=== PATIENT | male | born 2000 | race Caucasian/White ===

== ENCOUNTER 2023-11-18 00:14 | Observation (INO) | payer SELFPAY ==
[2023-11-18 00:32] VITALS: BMI 25.6
[2023-11-18] MEDS: ONDANSETRON 4 MG/2 ML VIAL IVPUSH ONE (02:15)
[2023-11-18] MEDS: LACTATED RINGERS SOLUTION 1000 ML INFUS.BAG IV ONE ×2 (02:15→11:35)
[2023-11-18] MEDS: ACETAMINOPHEN 1000 MG/100 ML BAG IVPB ONE (02:15)
[2023-11-18] MEDS ORDERED: ACETAMINOPHEN INJECTION 100 ML IVPB ONE (02:32)
[2023-11-18] MEDS ORDERED: ONDANSETRON 4 MG/2 ML VIAL ONE (02:32)
[2023-11-18 03:09] LABS: BASO % 0.2 % (0-2.0); HEMATOCRIT 47.8 % (35.4-49); HEMOGLOBIN 16.3 GM/dL (11.7-16.9); LYMPH % 18.1 % (8-40); MCH 32.3 pg (25.7-33.7); MEAN CELL VOLUME 94.8 fl (80-96); MEAN PLT VOLUME 9.1 fl (7.5-11.1); MONO % 7.8 % (3.8-10.2); NEUT % 71.9 % (42.8-82.8); PLATELET COUNT 275 10^3/uL (134-434); RBC 5.04 M/mm3 (4.00-5.60); RDW 13.2 % (11.9-15.9); WHITE BLOOD COUNT 11.3 K/mm3 (4.0-10.0)
[2023-11-18 03:27] LABS: POTASSIUM 3.9 mmol/L (3.5-5.1)
[2023-11-18 03:28] LABS: INR 0.99 (0.83-1.09); PROTHROMBIN TIME (PATIENT) 11.2 SEC (9.7-13.0)
[2023-11-18 03:29] LABS: CALCIUM 9.9 mg/dL (8.5-10.1)
[2023-11-18 03:30] LABS: ALBUMIN 4.3 g/dl (3.4-5.0); BLOOD UREA NITROGEN 12.2 mg/dL (7-18)
[2023-11-18 03:31] LABS: ACTIVATED PTT 31.5 SECONDS (25.2-36.5)
[2023-11-18 03:32] LABS: CREATININE 0.7 mg/dL (0.55-1.3)
[2023-11-18 03:34] LABS: TOT PROT 7.1 g/dl (6.4-8.2)
[2023-11-18 09:59] LABS: EPI CELLS 4 /uL (0-25.1); HYALINE CASTS 0 /uL (0-3.1); PH,URINE 7.5 (5.0-8.0); URINE APPEARANCE Error; URINE BACTERIA 23 /uL (0-1359); URINE BILIRUBIN NEGATIVE (NEGATIVE); URINE COLOR YELLOW; URINE GLUCOSE (UA) NEGATIVE (NEGATIVE); URINE KETONE NEGATIVE (NEGATIVE); URINE LEUK ESTERASE 1+ (NEGATIVE); URINE NITRITE NEGATIVE (NEGATIVE); URINE PROTEIN NEGATIVE (NEGATIVE); URINE RBC 11 /uL (0-23.9); URINE UROBILINOGEN 0.2 mg/dL (0.2-1.0); URINE WBC 69 /uL (0-25.8)
[2023-11-18] MEDS ORDERED: ONDANSETRON 4 MG/2 ML VIAL IVPUSH PRN (11:30)
[2023-11-18] MEDS ORDERED: ACETAMINOPHEN 1000 MG/100 ML BAG IVPB PRN (11:30)
[2023-11-18 12:05] VITALS: RESP 20
[2023-11-18] MEDS: LACTATED RINGERS SOLUTION 1,000 ML/1,000 ML INFUS.BAG IV SCH (14:16)
[2023-11-18 16:30] VITALS: BP 104/66; TEMP 98.1
[2023-11-18 16:40] VITALS: PULSE 58
== END 2023-11-18 20:38 | disposition left against medical advice (07) ==
LOC: JER 00:14 → JERBED 11:07 → INTOOBSV 11:07
PROVIDERS: ADMIT Internal Medicine; ATTEND Internal Medicine
PROC: 3E033NZ Introduction of Analgesics, Hypnotics, Sedatives into Peripheral Vein, Percutaneous Approach (ICD-10-PCS; principal; 2023-11-18)
PROC: 3E033GC Introduction of Other Therapeutic Substance into Peripheral Vein, Percutaneous Approach (ICD-10-PCS; 2023-11-18)
PROC: 3E0337Z Introduction of Electrolytic and Water Balance Substance into Peripheral Vein, Percutaneous Approach (ICD-10-PCS; 2023-11-18)
DX: K56.609 Unspecified intestinal obstruction, unspecified as to partial versus complete obstruction (principal); K52.9 Noninfective gastroenteritis and colitis, unspecified; F12.90 Cannabis use, unspecified, uncomplicated; F17.200 Nicotine dependence, unspecified, uncomplicated
CPT/HCPCS: 0241U-QW; 36415; 74177-TC; 80053; 81003; 83605; 83690; 85025; 85610; 85730; 86850; 86900; 86901; 87086; 99285-25; G0378; J0131; Q9967